=== PATIENT | female | born 1985 | race Caucasian/White ===

== ENCOUNTER 2023-04-01 21:15 | Emergency (ER) | payer OTHER, SELFPAY ==
[2023-04-01 21:20] VITALS: BP 109/58
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
[2023-04-02] MEDS: TORADOL 60 MG IM (01:14)
== END 2023-04-02 01:26 | disposition home or self-care (01) ==
LOC: EMR 21:15
PROVIDERS: EMERGENCY PHYSICIAN Emergency Medicine; FAMILY PHYSICIAN Internal Medicine
DX: K59.09 Other constipation (principal); K64.8 Other hemorrhoids
CPT/HCPCS: 99284; 96372